=== PATIENT | female | born 1955 | race Caucasian/White ===

== ENCOUNTER 2016-06-25 16:36 | Inpatient (IN) | payer MEDICARE ==
--- NOTE | ~2016-06-25 | PN ---
Unit #: [id number] #: [id number] Patient: ANNITA MALDONADO [id number] [facility] [address] [place] [address] [id number] I MR#: [id number] NAME: ANNITA MALDONADO ROOM: 30 Age: 61 Sex: F Admission Date: 06/25/2016 : 1955 Attending Physician: Taran Guillen M.D. Admitting Physician: Taran Guillen M.D. Primary Care Physician: Primary Care Physician Luba RICE NOTES DATE OF SERVICE 07/01/2016 DISCUSSION Ms. Maldonado is a 61-year-old white female who was seen today. Chart was reviewed and case was discussed with the staff. She has been anxious, withdrawn, and has been exhibiting bizarre behavior. She has not shown any agitation or aggression. Meanwhile, she has been taking the medications and tolerating them fairly well with no reported side effects. MENTAL STATUS EXAMINATION Middle-aged white female who is casually dressed with fair personal hygiene, appears to be in no acute distress or discomfort. The patient was awake and alert on interaction with impaired attention and concentration. Her mood is anxious with congruent affect. Speech is pressured and tangential. Thought processes were disorganized with some looseness of associations and flight of ideas. Her insight and judgment remain significantly impaired. TREATMENT PLAN 1. We will continue her on her current medications and treatment protocol. We will monitor her response to the medications and make further adjustments as needed. 2. We will continue to follow up. Dictated by... Sarah Nunez/galindo TD: 07/02/2016 06:07 JOB #: [id number] Unit #: [id number] #: [id number] Patient: ANNITA MALDONADO JAYJORGE PROGRESS NOTES Page 1 of 1 X Taran Guillen MD PROGRESS NOTE
--- NOTE | ~2016-06-25 | DS ---
Unit #: [id number] #: [id number] Patient: [facility]DONADO [id number] [facility] [address] [place] [address] [id number] I MR#: [id number] NAME: ANNITA MALDONADO ROOM: 30 Age: 61 Sex: F Admission Date: 06/25/2016 : 1955 Discharge Date: Attending Physician: Taran Guillen M.D. Primary Care Physician: Primary Care Physician No DISCHARGE SUMMARY IDENTIFYING DATA Ms. Maldonado is a 61-year-old white female, who is a resident of [place], [place], and is known to us from previous encounter, and was brought to the hospital by her daughter. DISCHARGE DIAGNOSES Psychiatric: Bipolar disorder, most recent episode of manic with psychosis. Medical: Gastroesophageal reflux disease. Stressors: Moderate psychosocial stressors. HISTORY OF PRESENT ILLNESS Please see initial psychiatric evaluation for details. PAST PSYCHIATRIC HISTORY Please see initial psychiatric evaluation for details. PAST MEDICAL HISTORY Please see initial psychiatric evaluation for details. HOSPITAL COURSE The patient was admitted to the adult psychiatric unit at [facility] and was oriented to the hospital environment. Routine p.r.n. medications were initiated, and she was started back on her home medications. Upon presentation, she was seen to be very restless, agitated, irritable, and hostile and wanting to leave the hospital immediately and was very difficult to work with her. She was showing very poor insight into her situation and was quite manic and medications were therefore adjusted and lithium and Seroquel were initiated and dosage was titrated, and she was seen to calm down and was able to participate in treatment, was able to complete the program without any complications and with no further adjustments being made in her medications, it was decided that she will be discharged home and will continue treatment on an outpatient basis. DISCHARGE MEDICATIONS Hiller 300 mg b.i.d. for bipolar and Seroquel 400 mg at bedtime for bipolar. DISCHARGE CONDITION Stable. PROGNOSIS Fair. Unit #: [id number] #: [id number] Patient: ANNITA MALDONADO Dictated by... Taran Guillen M.D. IAA/devanl TD: 07/02/2016 07:06 JOB #: [id number] DISCHARGE SUMMARY Page 1 of 1 X Taran Guillen MD DISCHARGE SUMMARY
--- NOTE | ~2016-06-25 | PN ---
Unit #: [id number] #: [id number] Patient: ANNITA MALDONADO [id number] [facility] [address] [place] [address] [id number] I MR#: [id number] NAME: ANNITA MALDONADO ROOM: [facility] Age: 61 Sex: F Admission Date: 06/25/2016 : 1955 Attending Physician: Taran Guillen M.D. Admitting Physician: Taran Guillen M.D. Primary Care Physician: Primary Care Physician Luba RICE NOTES DATE OF SERVICE 06/25/2016 DISCUSSION Ms. Maldonado is a 61-year-old white female who was seen today. Chart was reviewed and case was discussed with the staff. She has been anxious, withdrawn, and rather seclusive to herself. Meanwhile, she has been cooperative with the treatment recommendations and has been taking the medications and tolerating them fairly well with no reported side effects. MENTAL STATUS EXAMINATION Middle-aged white female who is casually dressed with fair personal hygiene, appears to be in no acute distress or discomfort. She was awake and alert on interaction with intact orientation. Her mood is anxious with a congruent affect. She denies any suicidal or homicidal ideations and also denies any auditory or visual hallucinations. Her insight and judgment remain slightly impaired. TREATMENT PLAN 1. We will continue her on her current medications and treatment protocol. We will monitor her response to the medications and make further adjustments as needed. 2. We will continue to follow up. Dictated by... Sarah Nunez/bzg TD: 06/27/2016 09:29 JOB #: [id number] Unit #: [id number] #: [id number] Patient: ANNITA MALDONADO JAYJORGE PROGRESS NOTES Page 1 of 1 X Taran Guillen MD PROGRESS NOTE
--- NOTE | ~2016-06-25 | PN ---
Unit #: [id number] #: [id number] Patient: ANNITA MALDONADO [id number] [facility] [address] [place] [address] [id number] I MR#: [id number] NAME: ANNITA MALDONADO ROOM: 15 Age: 61 Sex: F Admission Date: 06/25/2016 : 1955 Attending Physician: Taran Guillen M.D. Admitting Physician: Taran Guillen M.D. Primary Care Physician: Primary Care Physician Luba RICE NOTES DATE 06/29/2016 DISCUSSION Ms. Maldonado is a 61-year-old white female who was seen today and chart was reviewed and case was discussed with the staff. She has been anxious, withdrawn and rather seclusive to herself. Meanwhile, she has been pacing the hallways and has been agitated and irritable and difficult to have meaningful conversation and staff reports that she has been difficult to be redirected. MENTAL STATUS EXAMINATION Middle-aged white female who was casually dressed with fair personal hygiene and appears to be in no acute distress or discomfort. She was awake and alert with impaired attention and concentration. Her mood was anxious with congruent affect. She denies any suicidal or homicidal ideation. Her thought processes were disorganized with looseness of association and flight of ideas. Her insight and judgement remains significantly impaired. TREATMENT PLAN 1. Will continue on current medications and treatment protocol. Will monitor her response to the medications and make further adjustments as needed. 2. Will continue to follow up. Dictated by... Sarah Nunez/theodora TD: 06/29/2016 20:30 JOB #: [id number] Unit #: [id number] #: [id number] Patient: ANNITA MALDONADO JAYJORGE PROGRESS NOTES Page 1 of 1 X Taran Guillen MD PROGRESS NOTE
--- NOTE | ~2016-06-25 | PN ---
Unit #: [id number] #: [id number] Patient: ANNITA MALDONADO [id number] [facility] [address] [place] [address] [id number] I MR#: [id number] NAME: ANNITA MALDONADO ROOM: P110 Age: 61 Sex: F Admission Date: 06/25/2016 : 1955 Attending Physician: Taran Guillen M.D. Admitting Physician: Taran Guillen M.D. Primary Care Physician: Primary Care Physician Luba RICE NOTES DATE OF SERVICE 06/28/2016 DISCUSSION Ms. Maldonado is a 61-year-old white female who was seen today. Chart was reviewed and case was discussed with the staff. The patient was seen to be very disorganized as she was pacing the hallways and appeared to be almost sedated and having difficulty keeping her eyes open, and when interacted she stated that she had a very rough night last night stating "it was really bad." When asked what was bad about it she was unable to express or elaborate any further and had to be redirected and had to be asked to lie down in her bed and get some rest as it appeared that she still was half asleep. Meanwhile, she has not showed any agitation or aggression and does appear to be settling down, particularly with adjustments to the medication and does not appear to be hyper and agitated and irritable as she was couple of years ago when she first came to the hospital. MENTAL STATUS EXAMINATION Middle-aged white female who is casually dressed with fair personal hygiene, appears to be in no acute distress or discomfort. The patient was awake and alert with impaired attention and concentration. Her mood is anxious with a congruent affect. She denies any suicidal or homicidal ideations. Her insight and judgment remain significantly impaired. TREATMENT PLAN 1. We will continue her on her current medications and treatment protocol. We will monitor her response and make further adjustments as needed. 2. We will continue to follow up. Dictated by... Sarah Nunez/galindo TD: 06/28/2016 08:26 JOB #: [id number] Unit #: [id number] #: [id number] Patient: ANNITA MALDONADO PROGRESS NOTES Page 1 of 1 X Taran Guillen MD PROGRESS NOTE
--- NOTE | ~2016-06-25 | PN ---
Unit #: [id number] #: [id number] Patient: ANNITA MALDONADO [id number] [facility] [address] [place] [address] [id number] I MR#: [id number] NAME: ANNITA MALDONADO ROOM: P130 Age: 61 Sex: F Admission Date: 06/25/2016 : 1955 Attending Physician: Taran Guillen M.D. Admitting Physician: Taran Guillen M.D. Primary Care Physician: Primary Care Physician Luba RICE NOTES DATE OF SERVICE: 06/30/2016 SUBJECTIVE Ms. Maldonado is a 61-year-old white female who was seen today and chart was reviewed, and case was discussed with the staff. She has been anxious, withdrawn, and rather seclusive to herself. Meanwhile, she has been cooperative with treatment recommendations and has been taking the medications and tolerating them fairly well with no reported side effects. MENTAL STATUS EXAMINATION Middle-aged white female who was casually dressed with fair personal hygiene, appears to be in no acute distress or discomfort. She was awake and alert with impaired attention and concentration. Her mood was anxious with a congruent affect. She denies any suicidal or homicidal ideations. Her insight and judgment remain significantly impaired. TREATMENT PLAN 1. We will continue on her current treatment protocol and we will monitor her response to the medications and make further adjustments as needed. 2. We will continue to follow up. Dictated by... Sarah Nunez/ash TD: 07/01/2016 19:50 JOB #: [id number] GRISEL RICE NOTES Page 1 of 1 X Taran Guillen MD PROGRESS NOTE
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
--- NOTE | ~2016-06-25 | HP ---
Unit #: [id number] #: [id number] Patient: FLORA HALL [id number] [place] [address] [id number] I MR#: [id number] NAME: FLORA HALL ROOM: P110 Age: 61 Sex: F Admission Date: 06/25/2016 : 1955 Attending Physician: Taran Guillen M.D. Admitting Physician: Taran Guillen M.D. Primary Care Physician: Primary Care Physician No HISTORY AND PHYSICAL HISTORY OF PRESENT ILLNESS Flora is a 61 year old admitted to [facility] with increased anxiety and depression. PAST MEDICAL HISTORY 1. Obesity. 2. Hyperlipidemia. 3. High blood pressure. 4. COPD. PAST SURGICAL HISTORY 1. T and A. 2. Uterine ablation. 3. Tubal ligation. ALLERGIES No known drug allergies. SOCIAL HISTORY Smokes greater than 2 packs per day. Denies alcohol and illicit drug use. FAMILY HISTORY Medically noncontributory. REVIEW OF SYSTEMS CONSTITUTIONAL: No fever or chills. HEENT: Denies any sore throat, ear pain or runny nose. CARDIOVASCULAR: Denies chest pain, irregular heart rhythm or palpitations. CHEST: Denies shortness of breath or cough. No hemoptysis. GASTROINTESTINAL: Denies nausea, vomiting, diarrhea or chronic constipation. ENDOCRINE: Denies history of increased thirst or urination. No recent significant weight loss or gain. GENITOURINARY: Denies dysuria, frequency, or hematuria. SKIN: Denies any rashes. HEMATOLOGIC: Denies history of increased bleeding or bruising. MUSCULOSKELETAL: Denies any hot, swollen joints. No generalized muscle pain. NEUROLOGIC: Denies problems with vision or speech. No frequent, severe headaches. No numbness, tingling or weakness in any extremities. Denies loss of bladder or bowel control. CURRENT MEDICATIONS Unit #: [id number] #: [id number] Patient: FLORA HALL 1. Protonix 40 mg daily. 2. Seroquel 400 mg daily. 3. Nicotine patch 21 mg daily. 4. [place] 300 mg b.i.d. 5. Vistaril 50 mg q. 6 hours p.r.n. 6. Milk of Magnesia p.r.n. 7. Maalox p.r.n. 8. Tylenol p.r.n. PHYSICAL EXAMINATION GENERAL: Alert, well-nourished, in no apparent distress. VITAL SIGNS: Blood pressure 126/80, heart rate 80, respirations 16, temperature 98.6. WEIGHT: 190. HEIGHT: 5 feet 2 inches. SKIN: Warm and dry without rash or lesion. HEENT: Normocephalic. TMs not viewed. Oral and nasal passages clear. Conjunctivae clear. PERRLA. EOMs intact. NECK: Supple without lymphadenopathy or thyromegaly. HEART: Regular rate and rhythm without murmur. LUNGS: Clear. ABDOMEN: Soft, nontender. : Not done. EXTREMITIES: No evidence of cyanosis, clubbing or edema. Moves all without focal deficit. NEUROLOGICAL: Grossly within normal limits. Cranial Nerves: II: Visual love are intact. III, IV AND : Extraocular movements are intact. Pupils are equal, round and reactive to light. V: Facial sensation is grossly normal. VII: Facial movements and expression are normal. VIII: Auditory acuity grossly intact. IX, X: Uvula is midline. Phonation is normal. XI: Patient shrugs shoulders and turns head normally. XII: Tongue protrudes in the midline. Sensory and Motor Function: Sensory and motor sensation is grossly normal. Motor: moves all extremities well. Coordination: Gait is normal. Deep Tendon Reflexes: Intact. IMPRESSION Psychiatric admission. RECOMMENDATIONS PSYCHIATRIC: Per psychiatrist. MEDICAL: See no contraindications to participate in facility's activities. MEDICAL PROGNOSIS Good. MEDICAL CONDITION Stable. Dictated by... Hyacinth Ford P.A.-C. for [facility] Unit #: [id number] #: [id number] Patient: FLORA HALL TD: 06/26/2016 16:00 JOB #: [id number] HISTORY AND PHYSICAL Page 1 of 1 X Hyacinth Ford HISTORY AND PHYSICAL
[~2016-06-25 16:36] MED LIST: ACID REFLUX MED; HALDOL
[2016-06-26 09:52] LABS: BASOPHIL# 0.1 X10e3 (0-0.3); BASOPHIL% 0.7 % (0-2.5); EOSINOPHIL# 0.2 X10e3 (0-0.7); EOSINOPHIL% 1.9 % (0.0-7.0); HEMATOCRIT 39.1 % (35.0-45.0); HEMOGLOBIN 12.5 gm/dL (12.0-16.0); LYMPHOCYTE# 1.8 X10e3 (1.0-3.5); MEAN CELL VOLUME 85.7 FL (83-96); MEAN CORPUSCULAR HEMOGLOBIN 27.5 PG (28-34); MEAN CORPUSCULAR HGB CONC 32.1 g/dL (30-36); MEAN PLATELET VOLUME 9.1 FL (6.5-11.5); MONOCYTE# 0.8 X10e3 (0-1.0); MONOCYTE% 7.3 % (3.0-12.0); NEUTROPHIL# 8.1 X10e3 (1.5-7.1); NEUTROPHIL% 74.1 % (40-75); PLATELET COUNT 244 X10e3 (140-420); RED BLOOD COUNT 4.56 X10e (3.90-5.30); RED CELL DISTRIBUTION WIDTH 14.2 % (11.0-15.5)
[2016-06-26 09:58] LABS: DIFF IND NO
[2016-06-26 10:24] LABS: BILIRUBIN,TOTAL 0.6 mg/dL (0.2-2.0); BUN/CREATININE RATIO 15.71; CALCIUM SERUM 9.3 mg/dL (8.4-10.2); CREATININE SERUM 0.7 mg/dL (0.6-1.4); GLOM FILT RATE Estimated 94.8 mL/min (>60); POTASSIUM 4.3 mmol/L (3.5-5.1); PROTEIN TOTAL SERUM 6.8 g/dL (6.0-8.3)
[2016-06-26 11:35] LABS: URINE SOURCE CLEAN CATCH
[2016-06-26 12:45] LABS: URINE APPEARANCE CLEAR; URINE BILIRUBIN NEG (NEG); URINE BLOOD NEG (NEG); URINE COLOR YELLOW; URINE GLUCOSE NEG (NEG); URINE KETONE NEG (NEG); URINE LEUKOCYTE ESTERASE TRACE (NEG); URINE NITRATE NEG (NEG); URINE PH 6.5 (5-8); URINE PROTEIN NEG (NEG); URINE SPECIFIC GRAVITY 1.012 (1.003-1.035); URINE UROBILINOGEN 0.2 MG/DL (NEG)
[2016-06-26 12:48] LABS: U HYALINE CASTS AUWI 0-2 /[LPF]; URBCS1 AUWI 0-2 /[HPF] (0-2); URINE BACTERIA AUWI NEG (NEGATIVE); URINE SQUAMOUS EPITHELIAL CELL NONE SEEN /[HPF]
[2016-06-26 13:12] LABS: AMPHETAMINE NEG (NEG); BARBITURATES NEG (NEG); BENZODIAZEPINES POS (NEG); COCAINE NEG (NEG); MARIJUANA NEG (NEG); OPIATES NEG (NEG); TRICYCLIC ANTIDEPRESSANTS NEG (NEG); U METHADONE NEG (NEG)
== END 2016-07-02 10:00 | disposition home or self-care (01) | DRG 885 ==
LOC: P2S 20:36 → P1S 20:36
PROVIDERS: Psychiatry & Neurology Psychiatry
DX: F31.2 Bipolar disorder, current episode manic severe with psychotic features (principal); I10 Essential (primary) hypertension; K21.9 Gastro-esophageal reflux disease without esophagitis; E66.9 Obesity, unspecified; E78.5 Hyperlipidemia, unspecified; J44.9 Chronic obstructive pulmonary disease, unspecified; F17.210 Nicotine dependence, cigarettes, uncomplicated
CPT/HCPCS: 80053; 80307; 81003; 85025; J3230

== ENCOUNTER 2016-07-11 09:00 | Inpatient (IN) | payer MEDICARE ==
--- NOTE | ~2016-07-11 | PN ---
Unit #: [id number] #: [id number] Patient: ANNITA MALDONADO [id number] [facility] [address] [place] [address] [id number] MR#: [id number] NAME: ANNITA MALDONADO. ROOM: P114 Age: 61 Sex: F Admission Date: 07/11/2016 : 1955 Attending Physician: Taran Guillen M.D. Admitting Physician: Taran Guillen M.D. Primary Care Physician: Primary Care Physician Luba RICE NOTES DATE OF SERVICE: 07/16/2016 SUBJECTIVE Ms. Maldonado is a 61-year-old white female who was seen today and chart was reviewed and case was discussed with the staff. She has been anxious and withdrawn, and reports racing thoughts, mood swings, irritability, impulsivity, but she has not shown any agitation or aggression and has been taking the medications and tolerating them fairly well. MENTAL STATUS EXAMINATION Middle-aged white female who was casually dressed with fair personal hygiene, appears to be in no acute distress or discomfort. She was awake and alert with intact orientation. Her mood was anxious with a congruent affect. She denies any suicidal or homicidal ideations. Her insight and judgment remain significantly impaired. TREATMENT PLAN 1. We will continue her on her current medications and treatment protocol. We will monitor her response to the medications and make further adjustments as needed. 2. We will continue to follow up. Dictated by... Sarah Nunez/ash TD: 07/17/2016 01:35 JOB #: [id number] [facility] PROGRESS NOTES Page 1 of 1 X Taran Guillen MD X PROGRESS NOTE
--- NOTE | ~2016-07-11 | PN ---
Unit #: [id number] #: [id number] Patient: ANNITA MALDONADO [id number] [facility] [address] [place] [address] [id number] I MR#: [id number] NAME: ANNITA MALDONADO. ROOM: P114 Age: 61 Sex: F Admission Date: 07/11/2016 : 1955 Attending Physician: Taran Guillen M.D. Admitting Physician: Taran Guillen M.D. Primary Care Physician: Primary Care Physician Luba RICE NOTES DATE OF SERVICE: 07/15/2016 SUBJECTIVE Ms. Maldonado is a 61-year-old white female, who was seen today and chart was reviewed, and case was discussed with the staff. She has been agitated, irritable, anxious, restless, and pacing in the hallways, and showing very poor insight into her situation, . Meanwhile, she has been taking medications and tolerating them fairly well, but does not appear to be showing a therapeutic response to the medications. MENTAL STATUS EXAMINATION Middle-aged white female who was casually dressed with fair personal hygiene, appears to be in no acute distress or discomfort. She was awake and alert on impaired attention and concentration. Her mood was anxious with a congruent affect. Her speech was slow and tangential. Thought process were disorganized with some looseness of association with flight of ideas. Her insight and judgment remain significantly impaired. TREATMENT PLAN We will continue on her current medications and treatment protocol. We will monitor her response and make further adjustments as needed. Dictated by... Sarah Nunez/ash TD: 07/17/2016 01:46 JOB #: [id number] [facility] PROGRESS NOTES Page 1 of 1 X Taran Guillen MD PROGRESS NOTE
--- NOTE | ~2016-07-11 | PN ---
Unit #: [id number] #: [id number] Patient: ANNITA MALDONADO [id number] [facility] [address] [place] [address] [id number] MR#: [id number] NAME: ANNITA MALDONADO. ROOM: P114 Age: 61 Sex: F Admission Date: 07/11/2016 : 1955 Attending Physician: Taran Guillen M.D. Admitting Physician: Taran Guillen M.D. Primary Care Physician: Primary Care Physician Luba RICE NOTES DATE July 14, 2016 DISCUSSION Ms. Maldonado is a 61-year-old white female, who was seen today and chart was reviewed and the case was discussed with the staff. The patient has been anxious, withdrawn, and rather seclusive to herself. Meanwhile, she has been cooperative with the treatment recommendations and she has been taking the medications and tolerating them fairly well. MENTAL STATUS EXAMINATION Middle-aged white female, who was casually dressed with fair personal hygiene and appears to be in no acute distress or discomfort. The patient was awake and alert on interaction with intact orientation. Her mood was anxious with a congruent affect. The patient denies any suicidal or homicidal ideations. Her insight and judgment remain slightly impaired. TREATMENT PLAN 1. We will continue her on her current medications and treatment protocol, and will monitor her response to the medications, and make further adjustments as needed. 2. We will continue to followup. Dictated by... Sarah Nunez/nicolas TD: 07/16/2016 05:21 JOB #: [id number] Unit #: [id number] #: [id number] Patient: ANNITA MALDONADO GRISEL PROGRESS NOTES Page 1 of 1 X Taran Guillen MD PROGRESS NOTE
--- NOTE | ~2016-07-11 | PN ---
Unit #: [id number] #: [id number] Patient: ANNITA MALDONADO [id number] [facility] [address] [place] [address] [id number] MR#: [id number] NAME: ANNITA MALDONADO. ROOM: [facility] Age: 61 Sex: F Admission Date: 07/11/2016 : 1955 Attending Physician: Taran Guillen M.D. Admitting Physician: Taran Guillen M.D. Primary Care Physician: Primary Care Physician Luba RICE NOTES DATE July 12, 2016 DISCUSSION Ms. Maldonado is a 61-year-old white female, who was seen today and chart was reviewed and the case was discussed with the staff. She has been anxious, withdrawn, and rather seclusive to herself. Meanwhile, she has been cooperative with the treatment recommendations and she has been taking the medications and tolerating them fairly well with no reported side effects. She was seen to be very depressed, anxious, irritable, impulsive, and disorganized and quite jumpy. Meanwhile, she has been taking the medications and tolerating them fairly well with no reported side effects. MENTAL STATUS EXAMINATION Middle-aged white female, who was casually dressed with fair personal hygiene and appears to be in no acute distress or discomfort. She was awake and alert with impaired attention and concentration. Her mood was anxious with a congruent affect. She denies any suicidal or homicidal ideations, and also denies any auditory or visual hallucinations. Her insight and judgment remain slightly impaired. TREATMENT PLAN 1. We will continue her on her current medications and treatment protocol, and will monitor her response to the medications, and make further adjustments as needed. 2. We will continue to followup. Dictated by... Sarah Nunez/nicolas TD: 07/12/2016 12:34 JOB #: [id number] Unit #: [id number] #: [id number] Patient: ANNITA MALDONADO GRISEL PROGRESS NOTES Page 1 of 1 X Taran Guillen MD X PROGRESS NOTE
--- NOTE | ~2016-07-11 | HP ---
Unit #: [id number] #: [id number] Patient: FLORA HALL [id number] [place] [address] [id number] MR#: [id number] NAME: FLORA HALL. ROOM: [facility] Age: 61 Sex: F Admission Date: 07/11/2016 : 1955 Attending Physician: Taran Guillen M.D. Admitting Physician: Taran Guillen M.D. Primary Care Physician: Primary Care Physician No HISTORY AND PHYSICAL HISTORY OF PRESENT ILLNESS Flora is a 61 year old admitted to [facility] because of her depression and increased anxiety. The patient was seen and H and P dated 06/26/2016 was reviewed. This is current. No changes. Please see H and P dated 06/26/2016. Dictated by... Hyacinth Ford P.A.-C. for Sarah Griffith/pauline TD: 07/12/2016 01:15 JOB #: [id number] HISTORY AND PHYSICAL Page 1 of 1 X Hyacinth Ford HISTORY AND PHYSICAL
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
--- NOTE | ~2016-07-11 | DS ---
Unit #: [id number] #: [id number] Patient: ANNITA MALDONADO [id number] [facility] [address] [place] [address] [id number] MR#: [id number] NAME: ANNITA MALDONADO ROOM: P114 Age: 61 Sex: F Admission Date: 07/11/2016 : 1955 Discharge Date: 07/17/2016 Attending Physician: Taran Guillen M.D. Primary Care Physician: Primary Care Physician No DISCHARGE SUMMARY IDENTIFYING DATA Ms. Maldonado is a 61-year-old, single, white female who is a resident of [place], [place], and was brought to the hospital by her daughter. DISCHARGE DIAGNOSES Psychiatric: Bipolar disorder, most recent episode manic with psychosis. Medical: Hypertension, gastroesophageal reflux disease. Stressors: Moderate psychosocial stressors. HISTORY OF PRESENT ILLNESS Please see initial psychiatric evaluation for details. PAST PSYCHIATRIC HISTORY Please see initial psychiatric evaluation for details. PAST MEDICAL HISTORY Please see initial psychiatric evaluation for details. HOSPITAL COURSE The patient was admitted to the adult psychiatric unit at [facility] and was oriented to the hospital environment. Routine p.r.n. medications were initiated, and she was started back on her home medications and medications were adjusted, and the patient was seen to be having some acute psychosis, however, she was taking the medications regularly and Seroquel was gradually increased to 300 mg at bedtime and she was seen to be doing much better. Followed by which, it was decided that she will be discharged home and will continue treatment on an outpatient basis. DISCHARGE MEDICATIONS Seroquel 300 mg at bedtime for bipolar and lithium 300 mg at bedtime for bipolar. DISCHARGE CONDITION Stable. PROGNOSIS Fair. Dictated by... Taran Guillen M.D. Unit #: [id number] #: [id number] Patient: ANNITA MALDONADO IAA/modl TD: 07/17/2016 23:26 JOB #: [id number] DISCHARGE SUMMARY Page 1 of 1 X Taran Guillen MD X DISCHARGE SUMMARY
--- NOTE | ~2016-07-11 | PN ---
Unit #: [id number] #: [id number] Patient: ANNITA MALDONADO [id number] [facility] [address] [place] [address] [id number] MR#: [id number] NAME: ANNITA MALDONADO. ROOM: [facility] Age: 61 Sex: F Admission Date: 07/11/2016 : 1955 Attending Physician: Taran Guillen M.D. Admitting Physician: Taran Guillen M.D. Primary Care Physician: Primary Care Physician Luba RICE NOTES DATE 07/13/2016 DISCUSSION Ms. Maldonado is a 61-year-old white female who was seen today and chart was reviewed and case was discussed with the staff. She has been anxious, withdrawn and rather seclusive to herself though has been exhibiting significant anxiety, irritability and medication has been adjusted and she has not been able to show a therapeutic response and was sitting in her room with head in her hands and looking at the floor and would not make eye contact and has been reporting some poor frustration tolerance with increasing anxiety and anger. MENTAL STATUS EXAMINATION Middle-aged white female who was casually dressed with fair personal hygiene and appears to be in no acute distress or discomfort. She was awake and alert with impaired attention and concentration. Her mood was anxious with congruent affect. Her speech is slow and restricted in content. She denies any suicidal or homicidal ideation. Her insight and judgement remains slightly impaired. TREATMENT PLAN 1. Will continue on current medications and treatment protocol. Will monitor her response to the medications and make further adjustments as needed. 2. Will continue to follow up. Dictated by... Sarah Nunez/theodora TD: 07/13/2016 16:46 JOB #: [id number] Unit #: [id number] #: [id number] Patient: ANNITA MALDONADO GRISEL RCIE NOTES Page 1 of 1 X Taran Guillen MD PROGRESS NOTE
[2016-07-12 10:16] LABS: BASOPHIL# 0.1 X10e3 (0-0.3); BASOPHIL% 0.7 % (0-2.5); EOSINOPHIL# 0.2 X10e3 (0-0.7); EOSINOPHIL% 2.3 % (0.0-7.0); HEMATOCRIT 38.9 % (35.0-45.0); HEMOGLOBIN 12.6 gm/dL (12.0-16.0); LYMPHOCYTE% 22.5 % (17.0-45.0); MEAN CELL VOLUME 86.6 FL (83-96); MEAN CORPUSCULAR HGB CONC 32.3 g/dL (30-36); MEAN PLATELET VOLUME 9.3 FL (6.5-11.5); MONOCYTE# 0.8 X10e3 (0-1.0); MONOCYTE% 8.7 % (3.0-12.0); NEUTROPHIL# 5.9 X10e3 (1.5-7.1); NEUTROPHIL% 65.8 % (40-75); PLATELET COUNT 215 X10e3 (140-420); RED BLOOD COUNT 4.49 X10e (3.90-5.30); RED CELL DISTRIBUTION WIDTH 14.5 % (11.0-15.5)
[2016-07-12 10:18] LABS: DIFF IND NO
[2016-07-12 10:30] LABS: ALBUMIN SERUM 4.1 g/dL (3.5-5.0); BILIRUBIN,TOTAL 0.7 mg/dL (0.2-2.0); BUN/CREATININE RATIO 17.14; CALCIUM SERUM 9.5 mg/dL (8.4-10.2); CREATININE SERUM 0.7 mg/dL (0.6-1.4); GLOM FILT RATE Estimated 94.8 mL/min (>60); PROTEIN TOTAL SERUM 6.7 g/dL (6.0-8.3)
[2016-07-13 09:43] LABS: URINE APPEARANCE CLEAR; URINE BILIRUBIN NEG (NEG); URINE BLOOD NEG (NEG); URINE COLOR YELLOW; URINE GLUCOSE NEG (NEG); URINE KETONE NEG (NEG); URINE LEUKOCYTE ESTERASE 2+ (NEG); URINE NITRATE NEG (NEG); URINE PROTEIN NEG (NEG); URINE SPECIFIC GRAVITY 1.015 (1.003-1.035); URINE UROBILINOGEN 0.2 MG/DL (NEG)
[2016-07-13 09:51] LABS: URINE BACTERIA AUWI 1+ (NEGATIVE); URINE SQUAMOUS EPITHELIAL CELL OCC /[HPF]
[2016-07-13 11:36] LABS: AMPHETAMINE NEG (NEG); BARBITURATES NEG (NEG); BENZODIAZEPINES NEG (NEG); COCAINE NEG (NEG); MARIJUANA NEG (NEG); OPIATES NEG (NEG); TRICYCLIC ANTIDEPRESSANTS POS (NEG); U METHADONE NEG (NEG)
== END 2016-07-17 10:00 | disposition home or self-care (01) | DRG 885 ==
LOC: P2L 10:51 → P1S 10:51
PROVIDERS: Psychiatry & Neurology Psychiatry
DX: F31.2 Bipolar disorder, current episode manic severe with psychotic features (principal); I10 Essential (primary) hypertension; K21.9 Gastro-esophageal reflux disease without esophagitis
CPT/HCPCS: 80053; 80307; 81003; 85025